=== PATIENT | male | born 1995 | race Caucasian/White ===

== ENCOUNTER 2019-11-23 02:53 | Emergency (ER) | payer OTHER ==
[2019-11-23] MEDS ORDERED: DIPH,PERTUS(ACELL)TETVAC-LF 0.5 ML VIAL IM ONE (02:58)
[2019-11-23] MEDS ORDERED: LORazepam 2 MG/ML INJ IV STA (02:58)
[2019-11-23] MEDS ORDERED: HYDROmorphone 1 MG/ML 1 ML SYRINGE IVP STA (02:58)
[2019-11-23] MEDS ORDERED: SODIUM CHLORIDE 0.9% 1,000 ML IV STA (02:58)
[2019-11-23 03:00] VITALS: BP 142/86; PULSE 127; RESP 18; TEMP 97.8
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
[2019-11-23 03:03] LABS: Glucose,Whole Blood 167 mg/dL (75-99)
[2019-11-23 03:13] LABS: Basophils % (A) 0 %; Eosinophils # (A) 0.1 k/uL (0-0.7); Eosinophils % (A) 1 %; HCT 46.5 % (39.0-53.0); HGB 15.9 gm/dL (13.0-17.5); Lymphocytes # (A) 4.7 k/uL (1.0-4.8); Lymphocytes % (A) 31 %; MCH 33.1 pg (25.0-35.0); MCHC 34.3 g/dL (31.0-37.0); MCV 96.6 fL (80.0-100.0); Mean Platelet Volume 8.5; Monocytes # (A) 0.6 k/uL (0-1.0); Monocytes % (A) 4 %; Neutrophils # (A) 9.7 k/uL (1.3-7.7); Neutrophils % (A) 63 %; Platelet Count 268 k/uL (150-450); RBC 4.81 m/uL (4.30-5.90); RDW 12.6 % (11.5-15.5); WBC 15.5 k/uL (3.8-10.6)
[2019-11-23 03:18] LABS: Partial Thromboplastin Time 22.5 sec (22.0-30.0)
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
[2019-11-23 03:28] LABS: ALT 82 U/L (4-49); AST 74 U/L (17-59); African American GFR (CKD) >90 (>60 ml/min/1.73 sqM); Albumin 4.5 g/dL (3.5-5.0); Alkaline Phosphatase 76 U/L (38-126); Anion Gap 13 mmol/L; Blood Urea Nitrogen 10 mg/dL (9-20); Calcium 9.3 mg/dL (8.4-10.2); Carbon Dioxide 19 mmol/L (22-30); Chloride 106 mmol/L (98-107); Creatine Kinase 330 U/L (55-170); Glucose 170 mg/dL (74-99); Magnesium 2.1 mg/dL (1.6-2.3); Non-African American GFR(CKD) >90 (>60 ml/min/1.73 sqM); Phosphorus 4.2 mg/dL (2.5-4.5); Potassium 3.8 mmol/L (3.5-5.1); Sodium 138 mmol/L (137-145); Total Bilirubin 0.3 mg/dL (0.2-1.3); Total Protein 7.2 g/dL (6.3-8.2)
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
[2019-11-23 03:31] LABS: Alcohol 159 mg/dL
[2019-11-23] MEDS ORDERED: SODIUM CHLORIDE 0.9% 1,000 ML IV ONE (03:58)
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
--- NOTE | 2019-11-23 04:50 | XR ---
EXAMINATION TYPE: XR elbow limited RT DATE OF EXAM: 11/23/2019 COMPARISON: NONE HISTORY: Elbow pain TECHNIQUE: 2 views FINDINGS: I see no fracture nor dislocation. There are small densities in the the soft tissues at the elbow that could be foreign bodies. There are multiple similar densities projected in the proximal f orearm. There is no sign of elbow joint effusion. Joint spaces are normal. IMPRESSION: No fracture seen. Multiple foreign bodies.
== END 2019-11-23 05:29 | disposition other institution (70) ==
LOC: EC 02:53
DX: S02.19XA Other fracture of base of skull, initial encounter for closed fracture (principal); S01.112A Laceration without foreign body of left eyelid and periocular area, initial encounter; S51.011A Laceration without foreign body of right elbow, initial encounter; F10.129 Alcohol abuse with intoxication, unspecified; F17.200 Nicotine dependence, unspecified, uncomplicated; Z23 Encounter for immunization; V43.52XA Car driver injured in collision with other type car in traffic accident, initial encounter; Y92.410 Unspecified street and highway as the place of occurrence of the external cause
CPT/HCPCS: 99291; 96365; 96375 ×2; 96361 ×2; 90471; 36415; 93005; 86900; 86901; 80053; 82550; 83605; 83735; 84100; 84484; 85025; 85610; 85730; 86850; 80320; 72170; 73070; 71045; 72125; 70486; 70450; 71260; 74177; 90715; J2060; J0690; J1170; Q9967